=== PATIENT | female | born 1950 | race African-American/Black ===

== ENCOUNTER 2018-08-25 12:43 | Observation (INO) | payer MEDICARE, MEDICAID ==
[2018-08-25] MEDS ORDERED: hydrALAZINE 20 MG/ML VIAL ONE ×2 (13:19→14:37)
[2018-08-25 13:37] LABS: Bilirubin Negative (Negative); Blood, Urine Negative (Negative); Clarity CLEAR (Clear); Glucose, Urine (Dipstick) Negative (Negative); Leukocyte Small (Negative); Nitrite Negative (Negative); Protein, Urine (Dipstick) Negative (Neg-Trace); Specific Gravity, Urine 1.014 (1.002-1.036); pH, Urine 7.5 (5.0-9.0)
[2018-08-25 13:40] LABS: Bacteria/HPF Rare-Few HPF (None Seen); Hyaline Casts/LPF 0-3 HYALINE CAST LPF (0-3 Hyaline); RBC/HPF 0-3 HPF (0-3)
[2018-08-25 13:45] LABS: Amphetamine Not Detected (NotDetected); Barbiturates Screen Not Detected (NotDetected); Benzodiazepine Screen Not Detected (NotDetected); Cocaine Metabolite Screen Detected (NotDetected); Medtox Control Line Valid? VALID (VALID); Medtox Reader # READER 1; Methadone Not Detected (NotDetected); Methamphetamine Not Detected (NotDetected); Opiate Screen Not Detected (NotDetected); Oxycodone Screen Not Detected (NotDetected); Phencyclidine (PCP) Not Detected (NotDetected); THC/Cannabinoid Screen Not Detected (NotDetected); Tricyclic Screen Not Detected (NotDetected)
[2018-08-25 13:45] LABS: #Eosinphils 0.2 thou/uL (0.0-0.7); #Lymphocytes 2.5 thou/uL (1.20-3.40); #Monocytes 0.7 thou/uL (0.11-0.59); #Neutrophils 5.7 thou/uL (1.40-6.50); %Basophils 0.4 % (0.0-1.0); %Eosinophils 2.2 % (0.0-10.0); %Lymphocytes 27.6 % (21.0-51.0); %Monocytes 7.8 % (0.0-10.0); Hemoglobin 15.9 g/dL (12.0-16.0); Mean Corpuscular HGB CONC 31.1 g/dL (32.0-36.0); Mean Corpuscular Hemoglobin 29.5 pg (27.0-31.0); Mean Corpuscular Volume 94.9 fL (78.0-98.0); Mean Platelet Volume 7.1 fL (7.4-10.4); Platelet Count 390 thou/uL (130-400); RBC Distribution Width 12.3 % (11.5-14.5); Red Blood Cell (RBC) Count 5.41 mill/uL (4.20-5.40); White Blood Cell (WBC) Count 9.1 thou/uL (4.8-10.8)
[2018-08-25 13:55] LABS: Renal Epithelial None Seen HPF (0-3); Transitional Epithelial 0-3 HPF (0-3)
--- NOTE | 2018-08-25 14:01 | CT ---
HEAD CT NONCONTRAST: Date: 08/25/18 COMPARISON: 11/23/11. INDICATION: Emergency exam, frequency of falls. FINDINGS: There is a cavitary infarction of the right basal ganglia, which has evolved from prior exam. There i s interval development of lacunar infarction of the head of the left caudate nucleus. There is also e xtension of the hypodensity into the left putamen. No intracranial hemorrhage, mass effect, or midlin e shift. Mild prominence of the ventricular system is present and there is mild chronic ischemic dise ase. IMPRESSION: 1. Interval development of age-indeterminate left caudate head lacunar infarction, with posterior ex tension into the left putamen. 2. Temporal evolution of cavitary lacunar infarction of the right basal ganglia. Recommend follow-up with brain MRI, as indicated, to further assess. POS: JOSEPHINE
[2018-08-25 14:04] LABS: Acetaminophen Less than 6.0 mcg/mL (10.0-30.0); Alcohol Less than 10 mg/dL (Less than 10); Salicylate Less than 8.0 mg/dL (15.0-30.0)
[2018-08-25 14:05] LABS: ALT (SGPT) 7 U/L (8-55); AST (SGOT) 15 U/L (5-34); Albumin 3.8 g/dL (3.4-4.8); Alkaline Phosphatase 81 U/L (40-150); Anion Gap 13 mmol/L (10-20); BUN (Urea Nitrogen) 12 mg/dL (9.8-20.1); Bilirubin, Total 0.4 mg/dL (0.2-1.2); Calc. Creatinine Clearance 0 mL/min (70-130); Calcium 9.8 mg/dL (7.8-10.44); Carbon Dioxide 26 mmol/L (23-31); Chloride 108 mmol/L (98-107); Estimated GFR-MDRD Greater than 90; Globulin 3.6 g/dL (2.4-3.5); Glucose 79 mg/dL (80-115); Protein, Total 7.4 g/dL (6.0-8.3); Sodium 143 mmol/L (136-145)
[2018-08-25] MEDS ORDERED: Aspirin 325 MG TAB ONE (14:32)
[2018-08-25 16:07] VITALS: BMI 26.6
[2018-08-25] MEDS ORDERED: hydrALAZINE 20 MG/ML VIAL SLOW IVP PRN (16:08)
[2018-08-25] MEDS ORDERED: traZODone HCl 50 MG TAB PO PRN (16:09)
--- NOTE | 2018-08-25 16:11 | PDOC.EVN ---
Event Note - Event Note Event Note: pt seen & examined. Chart reviewed. start ASA, statin. Stroke protocol Counselled against Cocaine abuse. PRN antihypertensive with margin for permissive HTN in setting of Ac CVA. Avoid BB given +ve cocaine screening. Rest per SERVICE ORDER TAKER 's H&P.
[2018-08-25 17:30] LABS: Troponin I Less than 0.010 ng/mL (< 0.028)
[2018-08-25] MEDS ORDERED: Lisinopril 20 MG TAB PO SCH (17:45)
--- NOTE | 2018-08-25 17:54 | ULT ---
BILATERAL CAROTID DUPLEX ULTRASOUND: Date: 08/25/18 HISTORY: TIA. FINDINGS: Real-time color Doppler evaluation of the right and left carotid systems was performed. This showed p laque formation bilaterally, more pronounced at the origin of the left internal carotid artery. On the right side, peak systolic velocities of the common carotid were 15 cm/second. Internal carotid velocities were 102 cm/second and external carotid velocities were 140 cm/second. On the left side, peak systolic velocities of the common carotid were 101 cm/second. Internal carotid velocities were 183 cm/second with diastolic velocities of 50 cm/second. External carotid velocities were 113 cm/second. Vertebral flow was antegrade bilaterally. IMPRESSION: 1. No evidence of significant stenosis of the right internal carotid artery. 2. Bilateral antegrade vertebral flow. 3. Diastolic and systolic velocity measurements of the left internal carotid artery which would sugg est 50-69% narrowing. POS: JAMES
[2018-08-25] MEDS ORDERED: Senokot S 8.6-50 MG TAB PO PRN (18:22)
[2018-08-25] MEDS ORDERED: Acetaminophen 325 MG TAB PO PRN (18:22)
--- NOTE | 2018-08-25 19:28 | HP ---
PRIMARY CARE PHYSICIAN: Dr. Vila at [facility], although, she reports has not seen him in 2 years. CHIEF COMPLAINT: Dizziness and hypertension. HISTORY OF PRESENT ILLNESS: Ms. Viera is a 68-year-old female, who was sent from a [facility] due to dizziness, hypertension reports systolic over 200, was sent via EMS to the emergency room at [facility]. On arrival, blood pressure was 206/102. The patient reports had a stroke in 2009, denied any lingering deficits. Reports she has had dizziness over 2 weeks. She has had multiple falls and sought care today at the [facility], [place], operated by [facility] per doctor's note for a scooter due to multiple falls. Past medical history again is pertinent for a previous CVA and hypertension. The patient is a smoker. Reports 1 pack of cigarettes lasts her about 3 days. Reports that she has not had any hypertension medicine in the last 2 years that she can afford it. Also pertinent in the ER visit is UA drug screen, which was positive for cocaine. She has been given several medications in the emergency room to improve her blood pressure. Prior to arrival to the stroke unit, she had a blood pressure of 154/73. The patient had a CT of the brain, which showed interval development of age-indeterminate caudate left lacunar infarction with posterior extension into the left putamen, to temporal evolution of cavitary lacunar infarction of the right basal ganglia. MRI is recommended as followup. The patient will be admitted to the stroke unit for further management. PAST MEDICAL HISTORY: As above includes hypertension, hyperlipidemia, insomnia, urinary incontinence, female surgery, and CVA in 2010. PAST SURGERY HISTORY: Includes tubal ligation. PSYCHIATRIC HISTORY: None. SOCIAL HISTORY: Denies alcohol use. Denies drug use. The patient reports smoking a pack of cigarettes every 3 days. SOCIAL HISTORY: Again, lives with a roommate. REVIEW OF SYSTEMS: CONSTITUTIONAL: The patient denies fever or chills. Reports generalized weakness. Reports frequent falls. EYES: Denies eye changes or eye pain. ENT: Denies sore throat or rhinorrhea. CARDIOVASCULAR: Denies chest pain. Reports dyspnea on exertion. Denies palpitations. RESPIRATORY: Denies cough or shortness of breath other than dyspnea on exertion. GI: Denies abdominal pain, nausea, vomiting, diarrhea, or constipation. MUSCULOSKELETAL: Denies any back pain. Denies neck pain. Reports frequent falls. Denies specific injury. SKIN: Denies any changes or rash. NEUROLOGIC: Denies any focal weakness. Denies headache. Denies sensory changes. Denies numbness or tingling. ENDOCRINE: Negative. PSYCHIATRIC: Negative review of systems. Note, all other review of systems are negative unless mentioned in the HPI. PHYSICAL EXAMINATION: VITAL SIGNS: Blood pressure 154/73, pulse 71, respirations 18, temperature is 98.5, and pO2 sats are 98% on room air. CONSTITUTIONAL: The patient appears nontoxic. She is able to ambulate from the bathroom to the bed on the stroke unit without any assistance. She is alert and oriented to person, place, and time. HEENT: Head is atraumatic and normocephalic. Eyes are equally round and reactive to light. Extraocular muscles are intact. ENT, mucous membranes are moist. Mouth exam is normal. NECK: Normal range of motion. Trachea is midline. RESPIRATORY/CHEST: Breath sounds are clear. Chest movement is symmetrical. CARDIOVASCULAR: Normal heart sounds. Heart rate normal rate and rhythm. ABDOMEN: Nontender. Bowel sounds are heard back. Normal range of motion. Normal inspection. No CVA tenderness. EXTREMITIES: Upper extremity; range of motion is normal. Inspection is normal. Radial pulses equal bilaterally. Lower extremity; normal inspection. Normal range of motion. Pedal pulses equal bilaterally. NEUROLOGIC: The patient is oriented to person, place, and time. No focal motor or sensory deficits. SKIN: Warm, dry, and normal in color. PSYCHIATRIC: The patient is oriented to person, place, and time. Normal affect. DIAGNOSTIC DATA: EKG shows sinus baldev, beats per minute 53, no PACs, conduction normal, ST segments normal, T-waves normal, axis normal. No other findings. ALLERGIES: NONE. MEDICATIONS: The patient is not currently taking any medications, although, reports she is supposed to be taking lisinopril 20 with hydrochlorothiazide 12.5, also taking Lipitor 20 mg daily. Reports she takes some medication for some intermittent insomnia, but does not remember the name. PERTINENT LABORATORY DATA: White blood cell count is 9.1, hemoglobin 15.9, hematocrit 51.3, platelet count is 390. Chemistry; sodium is 143, potassium 4.0, chloride 108, carbon dioxide is 26, gap is 13, BUN is 12, creatinine is 0.76, estimated GFR is greater than 90, glucose is 79, and calcium 9.8. Liver enzymes are unremarkable. Troponin x2 are undetectable. Urine, small amount of leukocyte esterase, white blood cell count, and squamous cells. Bacteria is negative. Toxicology, cocaine was detected in the urine drug screen. ASSESSMENT AND PLAN: 1. Dizziness in light of previous cerebrovascular accident and hypertension. We will obtain an MRI of the brain, carotid Doppler study, and echocardiogram. We will have PT, OT, and Speech evaluate. 2. Hypertensive urgency. The patient will be restarted on home medications. P.r.n. medications will be ordered. We will continue to trend. 3. Hyperlipidemia. We will order lipids, fasting lipids in the morning. We will restart her home medication. 4. Gastrointestinal and deep venous thrombosis prophylaxis will be started. 5. Plan of care discussed with Dr. Almendarez, who agrees with plan. Please see her note. 6. Hospital course will be dependent on clinical findings. Job ID: [id number]
[2018-08-25] MEDS ORDERED: Nicotine 14 MG PATCH TD SCH (20:00)
[2018-08-25] MEDS: Sodium Chloride 0.9% 1,000 ML IV SCH (20:13)
[2018-08-25 20:38] LABS: Troponin I Less than 0.010 ng/mL (< 0.028)
[2018-08-25] MEDS ORDERED: Atorvastatin Calcium 20 MG TAB PO SCH (21:00)
[2018-08-26] MEDS: Sodium Chloride 0.9% 1,000 ML IV SCH (05:07)
[2018-08-26 05:54] LABS: #Basophils 0.1 thou/uL (0.0-0.2); #Eosinphils 0.2 thou/uL (0.0-0.7); #Lymphocytes 3.2 thou/uL (1.20-3.40); #Monocytes 0.8 thou/uL (0.11-0.59); #Neutrophils 3.9 thou/uL (1.40-6.50); %Basophils 1.1 % (0.0-1.0); %Eosinophils 2.6 % (0.0-10.0); %Lymphocytes 39.4 % (21.0-51.0); %Monocytes 9.2 % (0.0-10.0); %Neutrophils 47.7 % (42.0-75.0); Hemoglobin 13.6 g/dL (12.0-16.0); Mean Corpuscular Hemoglobin 29.3 pg (27.0-31.0); Mean Corpuscular Volume 94.5 fL (78.0-98.0); Mean Platelet Volume 7.2 fL (7.4-10.4); Platelet Count 374 thou/uL (130-400); RBC Distribution Width 12.4 % (11.5-14.5); Red Blood Cell (RBC) Count 4.64 mill/uL (4.20-5.40); White Blood Cell (WBC) Count 8.2 thou/uL (4.8-10.8)
[2018-08-26 06:11] LABS: ALT (SGPT) Less than 7 U/L (8-55); AST (SGOT) 11 U/L (5-34); Albumin 3.1 g/dL (3.4-4.8); Alkaline Phosphatase 72 U/L (40-150); Anion Gap 10 mmol/L (10-20); BUN (Urea Nitrogen) 16 mg/dL (9.8-20.1); Bilirubin, Total Less than 0.2 mg/dL (0.2-1.2); Calc. Creatinine Clearance 78 mL/min (70-130); Calcium 8.9 mg/dL (7.8-10.44); Carbon Dioxide 24 mmol/L (23-31); Cardiac Risk 5.1 (Less than 4.5); Chloride 111 mmol/L (98-107); Cholesterol 142 mg/dl (< 200 Desired); Estimated GFR-MDRD Greater than 90; Globulin 2.7 g/dL (2.4-3.5); Glucose 97 mg/dL (80-115); HDL Cholesterol 28 mg/dL (>60 Neg Risk); LDL Cholesterol, Calculated 87 mg/dL; Magnesium 1.9 mg/dL (1.6-2.6); Potassium 3.4 mmol/L (3.5-5.1); Protein, Total 5.8 g/dL (6.0-8.3); Sodium 142 mmol/L (136-145); Triglycerides 133 mg/dL (Less than 150)
[2018-08-26] MEDS ORDERED: Aspirin 325 MG TAB PO SCH (08:00)
[2018-08-26] MEDS ORDERED: Enoxaparin Sodium 40 MG/0.4 ML SYRINGE SC SCH (09:00)
[2018-08-26] MEDS ORDERED: Lisinopril/Hydrochlorothiazide 20 mg/12.5 mg Tablet PO SCH (09:00)
--- NOTE | 2018-08-26 09:57 | MRI ---
MRI BRAIN NONCONTRAST: History: CVA. Dizziness, falling. Hypertension. Comparison: 11-24-11 MRI, 08-25-18 CT FINDINGS: There is no evidence of acute intracranial hemorrhage or infarct. Area of interval infarct on the cur rent CT that had occurred since the previous MRI showed no restricted diffusion or adjacent FLAIR sig nal. Mild chronic ischemic small vessel disease is apparent within the periventricular white matter o f each cerebral hemisphere. There is no mass effect or shift of midline structures. Mild mucosal thic kening in the right mastoid air cells. IMPRESSION: Old areas of infarct. No acute intracranial abnormalities are demonstrated. POS: THUYH
--- NOTE | 2018-08-26 10:53 | PDOC.PN ---
- Subjective Encounter Start Date: 08/26/18 Encounter Start Time: 10:20 Subjective: Patient examined today, denies complaints -: Resting in bed - Objective Vital Signs & Weight: Vital Signs (12 hours) Temp Pulse Pulse Pulse Resp BP BP 08/26/18 09:25 59 L 60 174/77 H 08/26/18 09:18 52 L 192/76 H 08/26/18 07:50 99.4 F 52 L 18 08/26/18 04:00 98.2 F 53 L 18 08/26/18 00:00 98.7 F 56 L 19 BP BP Pulse Ox 08/26/18 09:25 194/78 H 08/26/18 09:18 08/26/18 07:50 192/76 H 97 08/26/18 04:00 162/70 H 94 L 08/26/18 00:00 133/58 L 93 L Weight Weight 70.505 kg I&O: 08/25/18 08/26/18 08/27/18 06:59 06:59 06:59 Intake Total 2398 1410 Balance 2398 1410 Result Diagrams: 08/26/18 05:01 08/26/18 05:01 Phys Exam - Physical Examination HEENT: PERRLA, moist MMs Neck: no nodes, no JVD Respiratory: clear to auscultation bilateral Cardiovascular: RRR, no significant murmur Gastrointestinal: soft, non-tender Musculoskeletal: no edema, pulses present Neurological: non-focal, normal sensation Lymphatic: no nodes Psychiatric: normal affect, A&O x 3 Skin: no rash, normal turgor Dx/Plan (1) Dizziness Code(s): R42 - DIZZINESS AND GIDDINESS Status: Acute (2) Frequent falls Code(s): R29.6 - REPEATED FALLS Status: Acute (3) Hypertensive urgency Code(s): I16.0 - HYPERTENSIVE URGENCY Status: Acute (4) Cerebral arteriosclerosis with history of previous cerebrovascular accident Code(s): I67.2 - CEREBRAL ATHEROSCLEROSIS; Z86.73 - PRSNL HX OF TIA (TIA), AND CEREB INFRC W/O RESID DEFICITS Status: Chronic - Plan cont current plan of care, PT/OT, speech therapy, DVT proph w/lovenox, DVT proph w/SCDs Patient scheduled for MRI, Echo today, PT/OT ...await recommendations -: BP has been labile, will continue to trend and have restarted home meds -: Will continue to monitor and recheck labs * . Review of Systems - Review of Systems Neurological: Other Other: Dizziness, frequent falls - Medications/Allergies Allergies/Adverse Reactions: Allergies Allergy/AdvReac Type Severity Reaction Status Date / Time No Known Allergies Allergy Unverified 08/25/18 16:12 Medications: Current Medications Acetaminophen (Tylenol) 650 mg PO Q4H PRN PRN Reason: Headache/Fever/Mild Pain (1-3) Aspirin (Aspirin) 325 mg PO [facility] Last Admin: 08/26/18 09:19 Dose: 325 mg Atorvastatin Calcium (Lipitor) 20 mg PO HS [facility] Last Admin: 08/25/18 20:07 Dose: 20 mg Enoxaparin Sodium (Lovenox) 40 mg SC 0900 [facility] Last Admin: 08/26/18 09:19 Dose: 40 mg Lisinopril/HCTZ (Prinizide 20-12.5) 1 tab PO DAILY [facility] Last Admin: 08/26/18 09:18 Dose: 1 tab Hydralazine HCl (Apresoline) 10 mg SLOW IVP Q4H PRN PRN Reason: SBP>190 Nicotine (Nicoderm Patch) 14 mg TD Q24HR [facility] Last Admin: 08/25/18 20:08 Dose: 14 mg Potassium Bicarb/Potassium Chloride (K-Lyte Cl) 25 meq PO [facility] Senna/Docusate Sodium (Senokot S) 2 tab PO BID PRN PRN Reason: Constipation Sodium Chloride (Flush - Normal Saline) 10 ml IVF PRN PRN PRN Reason: Saline Flush Trazodone HCl (Desyrel) 50 mg PO HS PRN PRN Reason: Insomnia
[2018-08-26] MEDS ORDERED: Pot Chloride/Pot Bicarb/Cit Ac 25 mEq Effervescent Tablet PO SCH (11:45)
[2018-08-26 16:30] VITALS: BP 145/65; TEMP 97.9
--- NOTE | 2018-08-26 17:25 | CON ---
DATE OF CONSULTATION: 08/26/2018 CONSULTING PHYSICIAN: Hospitalist Services. IMPRESSION: 1. Hypertension. 2. Cocaine abuse. 3. Left carotid stenosis of 50% to 69%.. PLAN: 1. Restart aspirin. 2. Add a statin to address her hyperlipidemia. 3. Suggest discontinuing cocaine. HISTORY OF PRESENT ILLNESS: Ms. Viera is a 68-year-old black female, came in with complaints of high blood pressure. She had no neurologic symptoms. She subsequently was admitted. She had an MRI of the brain done, which showed some minimal small vessel ischemic changes, but nothing acute. Carotid ultrasound showed a left carotid stenosis between 50% and 69%. Her cholesterol ratio was 5.1. Her drug screen was positive for cocaine. She was not taking aspirin. She has not had any neurologic symptoms, other than she fell last week. PAST MEDICAL HISTORY: Hypertension. SOCIAL HISTORY: Positive for drug use. ALLERGIES: NONE. MEDICATIONS: Medication list was reviewed. She was not on a statin. FAMILY HISTORY: Noncontributory. REVIEW OF SYSTEMS: Otherwise unremarkable. PHYSICAL EXAMINATION: GENERAL: She is a well-nourished elderly woman, in no distress. VITAL SIGNS: Blood pressure 154/73, pulse 71, respirations 18, and temperature 98.5. HEENT: Pupils are equal and reactive. Conjunctivae clear. Oropharynx clear. Cranium, normocephalic and atraumatic. NECK: Supple. No lymphadenopathy. EXTREMITIES: No cyanosis, clubbing, or edema. NEUROLOGIC: She is alert and appropriate. Her speech is fluent and clear. Cranial nerves 2 through 12 are intact. Motor exam showed symmetric strength. There is no fix or drift. Sensation was intact to touch. She can walk independently. No abnormal movements were seen. LABORATORY DATA: EKG showed a sinus rhythm. Imaging was reviewed. SUMMARY: This is a 68-year-old woman, who presented with hypertension while using cocaine. I do not see any acute neurologic issues. Carotid disease needs to be monitored as an outpatient. Job ID: [id number]
[2018-08-27] MEDS ORDERED: Pot Chloride/Pot Bicarb/Cit Ac 25 mEq Effervescent Tablet PO SCH (08:00)
== END 2018-08-26 19:30 | disposition home or self-care (01) ==
LOC: ERS 12:43 → 2SE 14:17
PROVIDERS: ADMIT Internal Medicine; ATTEND Internal Medicine
DX: R42 Dizziness and giddiness (principal); F17.210 Nicotine dependence, cigarettes, uncomplicated; E78.5 Hyperlipidemia, unspecified; I10 Essential (primary) hypertension; G47.00 Insomnia, unspecified; I16.0 Hypertensive urgency; R29.6 Repeated falls; I67.2 Cerebral atherosclerosis; F14.10 Cocaine abuse, uncomplicated; I65.22 Occlusion and stenosis of left carotid artery; Z86.73 Personal history of transient ischemic attack (TIA), and cerebral infarction without residual deficits
CPT/HCPCS: 70450; 70551; 80053; 80061; 80306; 80307; 83735; 84484 ×2; 85025; 93005 ×2; 93306; 93880; 96361 ×2; 96372; 96374; 96376 ×2; 97139 ×4; 99285; G0378; 36415; 81003; 81015; 84443; 93010; J0360; J1650

== ENCOUNTER 2019-02-28 16:05 | Emergency (ER) | payer MEDICARE, MEDICAID ==
--- NOTE | 2019-02-28 18:35 | CT ---
CT BRAIN WITHOUT CONTRAST: 02/28/19 HISTORY: Frequent falls, head injury. FINDINGS: Comparison made to exam of 08/25/18. Old infarction in the right frontal lobe, and right basal ganglia are again seen. Changes of chronic small vessel ischemic disease are again noted. The ventricular size is stable and the basilar cistern s are patent. No evidence of acute infarct, hemorrhage, midline shift or abnormal extra-axial fluid c ollections are seen. The bony calvarium is intact. The visualized paranasal sinuses and mastoid air cells are well aerated. IMPRESSION: No CT evidence of acute intracranial process. POS: [facility]
[2019-02-28 18:45] LABS: #Basophils 0.1 thou/uL (0.0-0.2); #Eosinphils 0.2 thou/uL (0.0-0.7); #Lymphocytes 3.6 thou/uL (1.20-3.40); #Monocytes 0.7 thou/uL (0.11-0.59); #Neutrophils 5.5 thou/uL (1.40-6.50); %Basophils 0.5 % (0.0-1.0); %Eosinophils 2.2 % (0.0-10.0); %Lymphocytes 35.7 % (21.0-51.0); %Monocytes 7.1 % (0.0-10.0); %Neutrophils 54.5 % (42.0-75.0); Hemoglobin 14.5 g/dL (12.0-16.0); Mean Corpuscular HGB CONC 33.2 g/dL (32.0-36.0); Mean Corpuscular Hemoglobin 30.5 pg (27.0-31.0); Mean Corpuscular Volume 91.8 fL (78.0-98.0); Mean Platelet Volume 7.3 fL (7.4-10.4); Platelet Count 251 thou/uL (130-400); RBC Distribution Width 12.9 % (11.5-14.5); Red Blood Cell (RBC) Count 4.75 mill/uL (4.20-5.40); White Blood Cell (WBC) Count 10.1 thou/uL (4.8-10.8)
[2019-02-28 19:05] LABS: ALT (SGPT) 7 U/L (8-55); AST (SGOT) 14 U/L (5-34); Albumin 4.1 g/dL (3.4-4.8); Alkaline Phosphatase 98 U/L (40-150); Anion Gap 14 mmol/L (10-20); BUN (Urea Nitrogen) 12 mg/dL (9.8-20.1); Bilirubin, Total 0.2 mg/dL (0.2-1.2); Calc. Creatinine Clearance 0 mL/min (70-130); Calcium 9.7 mg/dL (7.8-10.44); Carbon Dioxide 25 mmol/L (23-31); Chloride 111 mmol/L (98-107); Estimated GFR-MDRD 81; Globulin 3.2 g/dL (2.4-3.5); Glucose 90 mg/dL (80-115); Potassium 3.8 mmol/L (3.5-5.1); Protein, Total 7.3 g/dL (6.0-8.3); Sodium 146 mmol/L (136-145)
[2019-02-28 19:38] LABS: Bacteria/HPF None Seen HPF (None Seen); Bilirubin Negative (Negative); Blood, Urine Negative (Negative); Clarity Clear (Clear); Glucose, Urine (Dipstick) Normal (Negative); Leukocyte 75 Leu/uL (Negative); Nitrite Negative (Negative); Protein, Urine (Dipstick) 20 mg/dL (Neg-Trace); Squamous Epithelial 0-3 HPF (0-3)
== END 2019-02-28 20:10 | disposition home or self-care (01) ==
LOC: ERS 16:05
DX: R42 Dizziness and giddiness (principal); E78.5 Hyperlipidemia, unspecified; E78.00 Pure hypercholesterolemia, unspecified; I10 Essential (primary) hypertension; F17.210 Nicotine dependence, cigarettes, uncomplicated; W18.30XA Fall on same level, unspecified, initial encounter; G47.00 Insomnia, unspecified
CPT/HCPCS: 36415; 70450; 80053; 81003; 81015; 85025; 93005

== ENCOUNTER 2019-03-30 14:53 | Observation (INO) | payer MEDICARE, MEDICAID ==
[~2019-03-30 14:53] MED LIST: Dexamethasone 20 MG/5 ML VIAL ONE; Glycopyrrolate 0.2 MG/ML 5 ML SYRINGE ONE; Heparin 10,000 UNITS/ 10 ML VIAL ONE; Lidocaine 1% PF 5 ML VIAL ONE; Ondansetron PF 4 MG/2 ML Vial ONE; PHENYLEPHRINE-NS 100 MCG/ML 10 ML SYRINGE ONE; PROPOFOL 200 MG/20 ML VIAL ONE; ePHEDrine 50 MG/ML VIAL ONE
--- NOTE | 2019-03-30 16:42 | RAD ---
Exam: XR Finger(s) Rt Min 2 View HISTORY: Right finger injury after being bitten by a dog. COMPARISON: None FINDINGS: There is prominent subcutaneous soft tissue injury and laceration involving the distal aspect of the right small finger. There is a fracture involving the distal aspect of the distal phalanx with the tuft displaced distally. Prominent soft tissue irregularity and subcutaneous edema is present. No add itional fracture is seen, and there is no dislocation. Osteoarthritis involves interphalangeal joint. IMPRESSION: Extensive subcutaneous soft tissue injury and laceration with almost complete amputation of the dista l right small finger with displaced fracture involving the tuft and distal portion of the distal phalanx right small finger.
[2019-03-30] MEDS ORDERED: Morphine 4 MG/ML VIAL ONE (16:53)
[2019-03-30] MEDS ORDERED: Benzocaine 20% Spray 60 ML CAN ONE (17:16)
[2019-03-30] MEDS ORDERED: Bupivacaine 0.5% 10 ML VIAL ONE (17:20)
[2019-03-30] MEDS ORDERED: Sodium Chloride 0.9% 0 ML ONE (18:58)
[2019-03-30] MEDS ORDERED: Bacitracin Zinc Ointment 30 gm TUBE ONE ×2 (18:58→22:43)
[2019-03-30] MEDS ORDERED: Bupivacaine PF 0.5% 30 ML VIAL ONE ×2 (18:58→22:48)
[2019-03-30] MEDS ORDERED: Ampicillin/Sulbactam 3 GM in Sodium Chloride 0.9% 100 ML IVPB SCH (19:00)
[2019-03-30] MEDS ORDERED: Ondansetron PF 4 MG/2 ML Vial IVP PRN (20:58)
[2019-03-30] MEDS ORDERED: Morphine 4 MG/ML VIAL SLOW IVP PRN (20:58)
[2019-03-30] MEDS ORDERED: Milk Of Magnesia 30 ML UDCUP PO PRN (20:58)
[2019-03-30] MEDS ORDERED: HYDROcodone/Acetaminophen 5/325 mg Tablet PO PRN (20:58)
[2019-03-30] MEDS ORDERED: Bisacodyl 10 MG SUPP PR PRN (20:58)
[2019-03-30] MEDS ORDERED: Promethazine HCl 25 MG/ML VIAL IM PRN ×2 (20:58→23:11)
[2019-03-30] MEDS ORDERED: Fentanyl 100 MCG/2 ML VIAL SLOW IVP PRN (20:58)
[2019-03-30] MEDS ORDERED: Sodium Chloride 0.9% 30 ML ONE (21:09)
[2019-03-30] MEDS ORDERED: Fentanyl 100 MCG/2 ML VIAL ONE (21:10)
[2019-03-30] MEDS ORDERED: Lidocaine 2% Jelly 5 ML TUBE ONE (21:10)
[2019-03-30] MEDS ORDERED: TETANUS AND DIPHTHERIA TOX/PF 0.5 ML DISP.SYRIN IM SCH (22:00)
[2019-03-30] MEDS ORDERED: Bupivacaine HCl 0.5%/Epinephrine 1:200,000/PF 30 ml Vial ONE (22:43)
[2019-03-30] MEDS ORDERED: Promethazine HCl 25 MG/ML VIAL SLOW IVP PRN (23:11)
[2019-03-30] MEDS ORDERED: Ondansetron HCl/PF 4 MG/2 ML Vial IVP PRN (23:11)
--- NOTE | 2019-03-30 23:36 | RAD ---
Radiograph right fifth digit 2 views: DATE: 03/30/2019 Time: 11:03 PM HISTORY: 68-year-old female with traumatic fracture of fifth digit due to dog bite. COMPARISON: 03/30/2019 4:15 PM FINDINGS: Fluoroscopic spot images obtained with C-arm in the OR. The previously severely displaced fracture in volving the base of the fifth distal tuft has been reduced, and is in nearly anatomical alignment, except for approximately 1/5 bone width dorsal displacement of the distal fragment. It is now held in place with a K wire. IMPRESSION: Status post reduction and pin fixation of the almost amputated fracture at the distal aspect of the r ight fifth distal phalanx.
[2019-03-31 00:04] VITALS: BMI 27.9
[2019-03-31] MEDS ORDERED: Vancomycin HCl 1 GM in Premix Bag 1 BAG IVPB SCH ×2 (00:30→23:59)
[2019-03-31 01:05] LABS: Anion Gap 12 mmol/L (10-20); BUN (Urea Nitrogen) 17 mg/dL (9.8-20.1); Calc. Creatinine Clearance 66 mL/min (70-130); Calcium 8.7 mg/dL (7.8-10.44); Carbon Dioxide 25 mmol/L (23-31); Chloride 107 mmol/L (98-107); Estimated GFR-MDRD 73; Glucose 139 mg/dL (80-115); Potassium 3.5 mmol/L (3.5-5.1); Sodium 140 mmol/L (136-145)
[2019-03-31] MEDS: Aspirin 81 mg Enteric Coated Tablet PO SCH ×2 (01:20→09:05)
--- NOTE | 2019-03-31 08:50 | OP ---
DATE OF PROCEDURE: 03/30/2019 PREOPERATIVE DIAGNOSES: 1. Dog bite related wound, 1.5 cm with 7 mm radial skin bridge and pre and postoperatively intact circulation to include capillary bleeding. 2. Minimal particle contamination includes 2 strands of dog hair. No clots seen. 3. Nail bed laceration, jagged and complex. PROCEDURE PERFORMED: 1. Debridement of material associated with open fracture of the right small finger distal phalanx. 2. Debridement of wound, right small finger distal phalanx. 3. Open reduction and internal fixation, right small finger distal phalanx fracture. 4. Nail repair of right small finger distal phalanx. 5. Wound closure, 2.5 cm. INDICATIONS FOR PROCEDURE: The patient involved in an accident where she reported her landlord's dog bit her. She is familiar with the dog, but it is not her animal. This occurred approximately 6.5 hours prior to surgical intervention. Because it was open fracture, we were able to persuade appropriate parts of the system to have the surgery taken care of today. DESCRIPTION OF PROCEDURE: After successful general anesthesia by [facility], the limb was prepped and draped. The limb was evaluated after prepping and draping, 7 mm skin bridge was carefully maintained during prep and drape and then I inspected it and found that it still had pink capillary refill, although slightly less than other digit was still intact clinically. For this reason, we performed debridement of material associated with open fracture using following techniques. 1. Excisional technique. 2. We used a curette, the Pulsavac, Adson's, rongeur, and [place] elevators to achieve excellent debridement. 3. There were approximately 2 dog hairs, but no clots seen. No other gross particular debris was seen, this including inside the bone itself. 4. Down to and including bone. After successful general , the patient had the limb evaluated appropriately. There was no tourniquet inflated. This allowed us to maintain evaluation of the capillary on the far end from the possible Pulsavac, we could always see that it was arterial capillary flow indicative of overall flow being intact. Once performed a very lengthy debridement, the patient had the wound debrided using same and Adson's and tenotomy scissors. We then were able to continue to monitor after Pulsavac irrigation and during the overall bone phalanx and the nail bed. Once removed, the nail was extremely jagged. We then through the nail bed, performed a final debridement, elevated the eponychial fold back 1 cm on the side opposite the lack of wear and was able to clean the bone effective enough to place a small 3.5 pin inside only loosely. This was done appropriately under C-arm guidance and cut below the skin, we were able to utilize our in combating and preventing infection in this case. We then continued to visualize that the tip was pink, but because it had been traumatized with the K-wire, we elected to place the patient in a splint until further evaluation. Job ID: [id number]
[2019-03-31] MEDS ORDERED: Prevnar 13-Val Conj/PF 0.5 ML SYRINGE IM ONE (09:00)
[2019-03-31 17:26] VITALS: BP 120/72; TEMP 97.6
[2019-04-01] MEDS ORDERED: FLU VACC TS2019-20(65YR UP)/PF 180 MCG/0.5 ML SYRINGE IM ONE (10:00)
--- NOTE | 2019-04-01 19:52 | EKG ---
Test Reason : STAT Blood Pressure : / mmHG Vent. Rate : 055 BPM Atrial Rate : 055 BPM P-R Int : 160 ms QRS Dur : 118 ms QT Int : 472 ms P-R-T Axes : 066 017 -04 degrees QTc Int : 451 ms Sinus bradycardia Incomplete right bundle branch block Nonspecific T wave abnormality Abnormal ECG When compared with ECG of 28-FEB-2019 18:08, Incomplete right bundle branch block is now Present Confirmed by JUMA RODRIGUES, . SIsai ([id number]) on 04/01/2019 7:51:56 PM Referred By: LASHAY Confirmed By:DR. Anyi DENNISON MD
== END 2019-03-31 17:30 | disposition home or self-care (01) ==
LOC: ERS 14:53 → SDC 21:15 → SJJU 23:27
PROVIDERS: ADMIT Orthopaedic Surgery Hand Surgery; ATTEND Orthopaedic Surgery Hand Surgery
PROC: 0HQQXZZ Repair Finger Nail, External Approach (ICD-10-PCS; principal; 2019-03-30)
PROC: 0PST04Z Reposition Right Finger Phalanx with Internal Fixation Device, Open Approach (ICD-10-PCS; 2019-03-30)
DX: S61.356A Open bite of right little finger with damage to nail, initial encounter (principal); I10 Essential (primary) hypertension; G47.00 Insomnia, unspecified; E78.5 Hyperlipidemia, unspecified; E78.00 Pure hypercholesterolemia, unspecified; F17.210 Nicotine dependence, cigarettes, uncomplicated; R32 Unspecified urinary incontinence; Z79.82 Long term (current) use of aspirin; Z79.899 Other long term (current) drug therapy; W54.0XXA Bitten by dog, initial encounter
CPT/HCPCS: 11760; 26765; 64450; 73140; 76000; 80048; 90471; 93005; 96361; 96365; 96367; 96375; 99285; G0378; 36415; 93010; J0295; J0670; J0690; J1100; J1644; J2001; J2270; J2405; J2704; J3010; J3370; J3490; S0020